=== PATIENT | male | born 2000 | race Caucasian/White ===

== ENCOUNTER 2019-08-02 19:19 | Observation (INO) | payer SELFPAY ==
[2019-08-02] MEDS ORDERED: Ondansetron 4 MG/2 ML SDV IVPUSH ONE (19:22)
[2019-08-02] MEDS ORDERED: Sodium Chloride 0.9% 1,000 ML IV ONE (19:22)
[2019-08-02] MEDS ORDERED: Thiamine 200 MG/2 ML MDV IVPUSH ONE (19:23)
--- NOTE | 2019-08-02 19:30 | EDM.PDOC ---
ED HPI GENERAL MEDICAL PROBLEM - General Chief Complaint: General Stated Complaint: INTOXICATION Time Seen by Provider: 08/02/19 19:24 Source of Information: Reports: EMS History Limitations: Reports: Intoxication - History of Present Illness INITIAL COMMENTS - FREE TEXT/NARRATIVE: Per EMS, patient has been drinking alcohol today, showed up at a friend's house , walked in then passed out on the floor. He did vomit several times. Onset: Today Social & Family History - Alcohol Use Alcohol Use History: Yes ED ROS GENERAL - Review of Systems Review Of Systems: Unable To Obtain Reason Not Obtained: Altered level of consciousness - Physical Exam Exam: See Below Exam Limited By: Intoxication General Appearance: Lethargic Eye Exam: Bilateral Eye: EOMI, PERRL Head Exam: Atraumatic, Normocephalic Neck: Full Range of Motion Respiratory/Chest: No Respiratory Distress, Lungs Clear, Normal Breath Sounds Cardiovascular: Regular Rate, Rhythm, No Murmur GI/Abdominal: Normal Bowel Sounds, Soft, Non-Tender, No Distention Neuro Exam (Abbreviated): Slow to Respond, Other (moves all 4 extremities equally, GCS=11) EKG INTERPRETATION EKG Date: 08/02/19 Time: 20:45 Rhythm: NSR Rate (Beats/Min): 74 [place]: Normal P-Wave: Present QRS: Normal ST-T: Elevated (normal early repolarization pattern) Course - Vital Signs Last Recorded V/S: Last Vital Signs Temp 35.7 C L 08/02/19 22:52 Pulse 82 08/02/19 19:50 Resp 18 08/02/19 19:50 BP 116/67 08/02/19 19:50 Pulse Ox 97 08/02/19 19:50 - Orders/Labs/Meds Orders: Active Orders 24 hr Category Date Time Status EKG Documentation Completion [RC] ASDIRECTED Care 08/02/19 19:22 Active Pool Catheter Insertion [Insert Urinary Catheter] [OM. Care 08/02/19 19:30 Ordered PC] Q24H Urinary Catheter Assessment [RC] QSHIFT Care 08/02/19 19:23 Active C-Spine [Cervical Spine wo Cont] [CT] Stat Exams 08/02/19 21:37 Taken CXR [Chest 1V Frontal] [CR] Stat Exams 08/02/19 19:21 Taken Head wo Cont [CT] Stat Exams 08/02/19 19:20 Taken LORazepam [Ativan] Med 08/02/19 19:41 Active 1 mg IVPUSH ONETIME PRN Sodium Chloride 0.9% [Normal Saline] 1,000 ml Med 08/02/19 21:15 Active IV ASDIRECTED EKG 12 Lead [EK] Stat Ther 08/02/19 19:21 Ordered Medication Orders Sodium Chloride (Normal Saline) 1,000 mls @ 250 mls/hr IV ASDIRECTED MARTHA Last Admin: 08/02/19 21:24 Dose: 250 mls/hr Lorazepam (Ativan) 1 mg IVPUSH ONETIME PRN PRN Reason: Agitation Last Admin: 08/02/19 19:52 Dose: 1 mg Labs: Laboratory Tests 08/02/19 08/02/19 08/02/19 Range/Units 19:43 19:43 19:50 WBC 13.5 H (4.5-12.0) X10-3/uL RBC 5.47 (4.30-5.75) x10(6)uL Hgb 15.8 (13.5-17.8) g/dL Hct 46.0 (30.0-51.3) % MCV 84.2 (80-96) fL MCH 28.9 (27.7-33.6) pg MCHC 34.3 (32.2-35.4) g/dL RDW 12.0 (11.5-15.5) % Plt Count 241 (125-369) X10(3)uL MPV 7.4 (7.4-10.4) fL Neut % (Auto) 82.0 (46-82) % Lymph % (Auto) 11.9 L (13-37) % [place] % (Auto) 5.8 (4-12) % Eos % (Auto) 0 L (1.0-5.0) % Baso % (Auto) 0 (0-2) % Neut # (Auto) 11.1 H (1.6-8.3) # Lymph # (Auto) 1.6 (0.6-5.0) # [place] # (Auto) 0.8 (0.0-1.3) # Eos # (Auto) 0.0 (0.0-0.8) # Baso # (Auto) 0.0 (0.0-0.2) # Sodium (135-145) mmol/L Potassium (3.5-5.3) mmol/L Chloride (100-110) mmol/L Carbon Dioxide (21-32) mmol/L BUN (7-18) mg/dL Creatinine (0.70-1.30) mg/dL Est Cr Clr Drug Dosing Estimated GFR (MDRD) (>60) BUN/Creatinine Ratio (9-20) Glucose (80-116) mg/dL Calcium (8.6-10.2) mg/dL Magnesium (1.8-2.5) mg/dL Total Bilirubin (0.1-1.3) mg/dL AST (5-25) IU/L ALT (12-36) U/L Alkaline Phosphatase (56-112) IU/L Total Protein (6.0-8.0) g/dL Albumin (3.5-5.2) g/dL Globulin g/dL Albumin/Globulin Ratio Lipase (73-393) U/L Urine Color Yellow (YELLOW) Urine Appearance Clear (CLEAR) Urine pH 6.0 (5.0-6.5) Ur Specific [place] 1.010 (1.010-1.025) Urine Protein Negative (NEGATIVE) mg/dL Urine Glucose (UA) Normal (NORMAL) mg/dL Urine Ketones 50 H (NEGATIVE) mg/dL Urine Occult Blood Negative (NEGATIVE) Urine Nitrite Negative (NEGATIVE) Urine Bilirubin Negative (NEGATIVE) Urine Urobilinogen Normal (NEGATIVE) mg/dL Ur Leukocyte Esterase Negative (NEGATIVE) Urine RBC 0-5 (0-5) Urine WBC 0-5 (0-5) Ur Squamous Epith Cells Occasional (NS,R,O) Urine Bacteria Rare H (NS) Salicylates (<2.8) mg/dL Urine Opiates Screen Negative (NEGATIVE) Ur Oxycodone Screen Negative (NEGATIVE) Ur Propoxyphene Screen Negative (NEGATIVE) Acetaminophen (<2) ug/mL Ur Barbituates Screen Negative (NEGATIVE) Ur Tricyclics Screen Negative (NEGATIVE) Ur Phencyclidine Scrn Negative (NEGATIVE) Ur Amphetamine Screen Negative (NEGATIVE) Urine MDMA Screen Negative (NEGATIVE) U Benzodiazepines Scrn Negative (NEGATIVE) U Cocaine Metab Screen Negative (NEGATIVE) U Marijuana (THC) Screen Negative (NEGATIVE) Ethyl Alcohol (<0.03) % 02/28/20 02/28/20 02/28/20 Range/Units 19:50 19:50 19:50 WBC (4.5-12.0) X10-3/uL RBC (4.30-5.75) x10(6)uL Hgb (13.5-17.8) g/dL Hct (30.0-51.3) % MCV (80-96) fL MCH (27.7-33.6) pg MCHC (32.2-35.4) g/dL RDW (11.5-15.5) % Plt Count (125-369) X10(3)uL MPV (7.4-10.4) fL Neut % (Auto) (46-82) % Lymph % (Auto) (13-37) % [place] % (Auto) (4-12) % Eos % (Auto) (1.0-5.0) % Baso % (Auto) (0-2) % Neut # (Auto) (1.6-8.3) # Lymph # (Auto) (0.6-5.0) # [place] # (Auto) (0.0-1.3) # Eos # (Auto) (0.0-0.8) # Baso # (Auto) (0.0-0.2) # Sodium 140 (135-145) mmol/L Potassium 3.3 L (3.5-5.3) mmol/L Chloride 99 L (100-110) mmol/L Carbon Dioxide 25 (21-32) mmol/L BUN 5 L (7-18) mg/dL Creatinine 0.9 (0.70-1.30) mg/dL Est Cr Clr Drug Dosing TNP Estimated GFR (MDRD) > 60 (>60) BUN/Creatinine Ratio 5.6 L (9-20) Glucose 119 H (80-116) mg/dL Calcium 8.9 (8.6-10.2) mg/dL Magnesium 2.1 (1.8-2.5) mg/dL Total Bilirubin 0.7 (0.1-1.3) mg/dL AST 35 H (5-25) IU/L ALT 32 (12-36) U/L Alkaline Phosphatase 82 (56-112) IU/L Total Protein 8.1 H (6.0-8.0) g/dL Albumin 4.6 (3.5-5.2) g/dL Globulin 3.5 g/dL Albumin/Globulin Ratio 1.3 Lipase (73-393) U/L Urine Color (YELLOW) Urine Appearance (CLEAR) Urine pH (5.0-6.5) Ur Specific [place] (1.010-1.025) Urine Protein (NEGATIVE) mg/dL Urine Glucose (UA) (NORMAL) mg/dL Urine Ketones (NEGATIVE) mg/dL Urine Occult Blood (NEGATIVE) Urine Nitrite (NEGATIVE) Urine Bilirubin (NEGATIVE) Urine Urobilinogen (NEGATIVE) mg/dL Ur Leukocyte Esterase (NEGATIVE) Urine RBC (0-5) Urine WBC (0-5) Ur Squamous Epith Cells (NS,R,O) Urine Bacteria (NS) Salicylates 3.0 (<2.8) mg/dL Urine Opiates Screen (NEGATIVE) Ur Oxycodone Screen (NEGATIVE) Ur Propoxyphene Screen (NEGATIVE) Acetaminophen < 2 L (<2) ug/mL Ur Barbituates Screen (NEGATIVE) Ur Tricyclics Screen (NEGATIVE) Ur Phencyclidine Scrn (NEGATIVE) Ur Amphetamine Screen (NEGATIVE) Urine MDMA Screen (NEGATIVE) U Benzodiazepines Scrn (NEGATIVE) U Cocaine Metab Screen (NEGATIVE) U Marijuana (THC) Screen (NEGATIVE) Ethyl Alcohol 0.25 H* (<0.03) % 08/02/19 Range/Units 19:50 WBC (4.5-12.0) X10-3/uL RBC (4.30-5.75) x10(6)uL Hgb (13.5-17.8) g/dL Hct (30.0-51.3) % MCV (80-96) fL MCH (27.7-33.6) pg MCHC (32.2-35.4) g/dL RDW (11.5-15.5) % Plt Count (125-369) X10(3)uL MPV (7.4-10.4) fL Neut % (Auto) (46-82) % Lymph % (Auto) (13-37) % [place] % (Auto) (4-12) % Eos % (Auto) (1.0-5.0) % Baso % (Auto) (0-2) % Neut # (Auto) (1.6-8.3) # Lymph # (Auto) (0.6-5.0) # [place] # (Auto) (0.0-1.3) # Eos # (Auto) (0.0-0.8) # Baso # (Auto) (0.0-0.2) # Sodium (135-145) mmol/L Potassium (3.5-5.3) mmol/L Chloride (100-110) mmol/L Carbon Dioxide (21-32) mmol/L BUN (7-18) mg/dL Creatinine (0.70-1.30) mg/dL Est Cr Clr Drug Dosing Estimated GFR (MDRD) (>60) BUN/Creatinine Ratio (9-20) Glucose (80-116) mg/dL Calcium (8.6-10.2) mg/dL Magnesium (1.8-2.5) mg/dL Total Bilirubin (0.1-1.3) mg/dL AST (5-25) IU/L ALT (12-36) U/L Alkaline Phosphatase (56-112) IU/L Total Protein (6.0-8.0) g/dL Albumin (3.5-5.2) g/dL Globulin g/dL Albumin/Globulin Ratio Lipase 50 L (73-393) U/L Urine Color (YELLOW) Urine Appearance (CLEAR) Urine pH (5.0-6.5) Ur Specific [place] (1.010-1.025) Urine Protein (NEGATIVE) mg/dL Urine Glucose (UA) (NORMAL) mg/dL Urine Ketones (NEGATIVE) mg/dL Urine Occult Blood (NEGATIVE) Urine Nitrite (NEGATIVE) Urine Bilirubin (NEGATIVE) Urine Urobilinogen (NEGATIVE) mg/dL Ur Leukocyte Esterase (NEGATIVE) Urine RBC (0-5) Urine WBC (0-5) Ur Squamous Epith Cells (NS,R,O) Urine Bacteria (NS) Salicylates (<2.8) mg/dL Urine Opiates Screen (NEGATIVE) Ur Oxycodone Screen (NEGATIVE) Ur Propoxyphene Screen (NEGATIVE) Acetaminophen (<2) ug/mL Ur Barbituates Screen (NEGATIVE) Ur Tricyclics Screen (NEGATIVE) Ur Phencyclidine Scrn (NEGATIVE) Ur Amphetamine Screen (NEGATIVE) Urine MDMA Screen (NEGATIVE) U Benzodiazepines Scrn (NEGATIVE) U Cocaine Metab Screen (NEGATIVE) U Marijuana (THC) Screen (NEGATIVE) Ethyl Alcohol (<0.03) % Meds: Medications Generic Name Dose Route Start Last Admin Trade Name Freq PRN Reason Stop Dose Admin Sodium Chloride 1,000 mls @ 250 mls/hr 08/02/19 21:15 08/02/19 21:24 Normal Saline IV 250 mls/hr ASDIRECTED MARTHA Administration Lorazepam 1 mg 08/02/19 19:41 08/02/19 19:52 Ativan IVPUSH 1 mg ONETIME PRN Administration Agitation Discontinued Medications Generic Name Dose Route Start Last Admin Trade Name Freq PRN Reason Stop Dose Admin Haloperidol Lactate Confirm 08/02/19 20:01 08/02/19 20:38 Haldol Administered 08/02/19 20:02 5 mg Dose Administration 5 mg .ROUTE .STK-MED ONE Haloperidol Lactate 5 mg 08/02/19 20:00 08/02/19 22:48 Haldol IM 08/02/19 20:01 Not Given ONETIME ONE Sodium Chloride 1,000 mls @ 999 mls/hr 08/02/19 19:22 08/02/19 19:49 Normal Saline IV 08/02/19 20:22 999 mls/hr .BOLUS ONE Administration Lorazepam 1 mg 08/02/19 20:22 08/02/19 20:26 Ativan IVPUSH 08/02/19 20:23 1 mg ONETIME ONE Administration Ondansetron HCl 4 mg 08/02/19 19:22 08/02/19 20:39 Zofran IVPUSH 08/02/19 19:23 4 mg ONETIME ONE Administration Thiamine HCl 100 mg 08/02/19 19:23 08/02/19 20:39 Vitamin B-1 IVPUSH 08/02/19 19:24 100 mg ONETIME ONE Administration - Radiology Interpretation Free Text/Narrative:: CT Head w/o contrast: No acute process. (Dr. Zion FLOYD) CT C-spine w/o contrast: No acute process. (Dr. Zion FLOYD) CXR: No acute process. (ED provider interpretation) - Re-Assessments/Exams Free Text/Narrative Re-Assessment/Exam: 08/02/19 21:[address] scan due to agitation. Agitation resolved after Ativan 2 mg IV and Haldol 5 mg IM. 08/02/19 22:41 Vital signs stable. Sa02 96% RA. Patient sleeping, not arousable, likely due to combination of Ativan, Haldol and EtOH. Will admit to [facility] ICU for observation. Departure - Departure Time of Disposition: 22:55 Disposition: Refer to Observation Condition: Fair Clinical Impression: Altered level of consciousness Alcohol intoxication Qualifiers: Complication of substance-induced condition: uncomplicated Qualified Code(s): F10.920 - Alcohol use, unspecified with intoxication, uncomplicated - Discharge Information *PRESCRIPTION DRUG MONITORING PROGRAM REVIEWED*: Yes *COPY OF PRESCRIPTION DRUG MONITORING REPORT IN PATIENT [place]: Not Applicable Referrals: PCP,None [Primary Care Provider] - Forms: ED Department Discharge Sepsis Event Note - Focused Exam Vital Signs: Vital Signs Temp Temp Pulse Resp BP Pulse Ox 08/02/19 22:52 35.7 C L 08/02/19 22:30 35 C L 08/02/19 22:28 35 C L 08/02/19 19:50 82 18 116/67 97 Date Exam was Performed: 08/02/19 Time Exam was Performed: 22:53 - My Orders Last 24 Hours: My Active Orders 08/02/19 19:20 Head wo Cont [CT] Stat 08/02/19 19:21 CXR [Chest 1V Frontal] [CR] Stat EKG 12 Lead [EK] Stat 08/02/19 19:22 EKG Documentation Completion [RC] ASDIRECTED 08/02/19 19:23 Urinary Catheter Assessment [RC] QSHIFT 08/02/19 19:30 Pool Catheter Insertion [Insert Urinary Catheter] [OM.PC] Q24H 08/02/19 19:41 LORazepam [Ativan] 1 mg IVPUSH ONETIME PRN 08/02/19 21:15 Sodium Chloride 0.9% [Normal Saline] 1,000 ml IV ASDIRECTED 08/02/19 21:37 C-Spine [Cervical Spine wo Cont] [CT] Stat - Assessment/Plan Last 24 Hours: My Active Orders 08/02/19 19:20 Head wo Cont [CT] Stat 08/02/19 19:21 CXR [Chest 1V Frontal] [CR] Stat EKG 12 Lead [EK] Stat 08/02/19 19:22 EKG Documentation Completion [RC] ASDIRECTED 08/02/19 19:23 Urinary Catheter Assessment [RC] QSHIFT 08/02/19 19:30 Pool Catheter Insertion [Insert Urinary Catheter] [OM.PC] Q24H 08/02/19 19:41 LORazepam [Ativan] 1 mg IVPUSH ONETIME PRN 08/02/19 21:15 Sodium Chloride 0.9% [Normal Saline] 1,000 ml IV ASDIRECTED 08/02/19 21:37 C-Spine [Cervical Spine wo Cont] [CT] Stat
[2019-08-02] MEDS ORDERED: LORazepam 2 MG/ML SDV IVPUSH PRN (19:41)
[2019-08-02] MEDS ORDERED: Haloperidol Lactate 5 MG/ML SDV IM ONE (20:00)
[2019-08-02] MEDS ORDERED: Haloperidol Lactate 5 MG/ML SDV ONE (20:01)
[2019-08-02 20:17] LABS: ACETAMINOPHEN < 2 ug/mL (<2)
[2019-08-02] MEDS ORDERED: LORazepam 2 MG/ML SDV IVPUSH ONE (20:22)
[2019-08-02] MEDS ORDERED: Sodium Chloride 0.9% 1,000 ML IV SCH (21:15)
[2019-08-02] MEDS ORDERED: Ondansetron 4 MG/2 ML SDV IV PRN (23:20)
--- NOTE | 2019-08-03 05:10 | PCM.HP.2 ---
H&P History of Present Illness - General Date of Service: 08/03/19 Admit Problem/Dx: Admission Diagnosis/Problem Admission Diagnosis/Problem Altered level of consciousness Source of Information: EMS Notes Reviewed, RN History Limitations: Reports: Intoxication - History of Present Illness Initial Comments - Free Text/Narative: Shiv is a 18 yo male admitted for observation after alcohol intoxication. The story is that he showed up in someone's house,passed out after vomiting several times,. Not much else is available in terms of history Social & Family History - Tobacco Use Smoking Status *Q: Unknown Ever Smoked H&P Review of Systems - Review of Systems: Review Of Systems: Comprehensive ROS is negative, except as noted in HPI. Exam - Exam Exam: See Below - Vital Signs Vital Signs: Last Vital Signs Temp 96.2 F L 08/02/19 22:52 Pulse 82 08/02/19 19:50 Resp 18 08/02/19 19:50 BP 116/67 08/02/19 19:50 Pulse Ox 98 08/03/19 01:45 - Exam General: Obtunded HEENT: PERRLA, Hearing Intact, Mucosa Moist & [place], Nares Patent, Normal Nasal Septum, Posterior Pharynx Clear, Conjunctiva Clear, EOMI, EACs Clear, TMs Clear Neck: Supple, Trachea Midline, 2 Lungs: Clear to Auscultation, Normal Respiratory Effort Cardiovascular: Regular Rate, Regular Rhythm GI/Abdominal Exam: Normal Bowel Sounds, Soft, Non-Tender, No Organomegaly, No Distention, No Abnormal Bruit, No Mass, Pelvis Stable (Male) Exam: Deferred Rectal (Males) Exam: Deferred Back Exam: Normal Inspection, Full Range of Motion, NT Extremities: Normal Inspection, Normal Range of Motion, Non-Tender, No Pedal Edema, Normal Capillary Refill Skin: Warm, Dry, Intact Neurological: Cranial Nerves Intact, Reflexes Equal Bilateral Neuro Extensive - Mental Status: Disorientation to Time, Memory Loss-Remote Events. No: Oriented x3 Neuro Extensive - Motor, Sensory, Reflexes: CN II-XII Intact, Normal Gait, Normal Reflexes Psychiatric: Alert, Normal Affect, Normal Mood - Patient Data Lab Results Last 24 hrs: Laboratory Results - last 24 hr 08/02/19 08/02/19 08/02/19 Range/Units 19:43 19:43 19:50 WBC 13.5 H (4.5-12.0) X10-3/uL RBC 5.47 (4.30-5.75) x10(6)uL Hgb 15.8 (13.5-17.8) g/dL Hct 46.0 (30.0-51.3) % MCV 84.2 (80-96) fL MCH 28.9 (27.7-33.6) pg MCHC 34.3 (32.2-35.4) g/dL RDW 12.0 (11.5-15.5) % Plt Count 241 (125-369) X10(3)uL MPV 7.4 (7.4-10.4) fL Neut % (Auto) 82.0 (46-82) % Lymph % (Auto) 11.9 L (13-37) % [place] % (Auto) 5.8 (4-12) % Eos % (Auto) 0 L (1.0-5.0) % Baso % (Auto) 0 (0-2) % Neut # (Auto) 11.1 H (1.6-8.3) # Lymph # (Auto) 1.6 (0.6-5.0) # [place] # (Auto) 0.8 (0.0-1.3) # Eos # (Auto) 0.0 (0.0-0.8) # Baso # (Auto) 0.0 (0.0-0.2) # Sodium (135-145) mmol/L Potassium (3.5-5.3) mmol/L Chloride (100-110) mmol/L Carbon Dioxide (21-32) mmol/L BUN (7-18) mg/dL Creatinine (0.70-1.30) mg/dL Est Cr Clr Drug Dosing Estimated GFR (MDRD) (>60) BUN/Creatinine Ratio (9-20) Glucose (80-116) mg/dL Calcium (8.6-10.2) mg/dL Magnesium (1.8-2.5) mg/dL Total Bilirubin (0.1-1.3) mg/dL AST (5-25) IU/L ALT (12-36) U/L Alkaline Phosphatase (56-112) IU/L Total Protein (6.0-8.0) g/dL Albumin (3.5-5.2) g/dL Globulin g/dL Albumin/Globulin Ratio Lipase (73-393) U/L Urine Color Yellow (YELLOW) Urine Appearance Clear (CLEAR) Urine pH 6.0 (5.0-6.5) Ur Specific [place] 1.010 (1.010-1.025) Urine Protein Negative (NEGATIVE) mg/dL Urine Glucose (UA) Normal (NORMAL) mg/dL Urine Ketones 50 H (NEGATIVE) mg/dL Urine Occult Blood Negative (NEGATIVE) Urine Nitrite Negative (NEGATIVE) Urine Bilirubin Negative (NEGATIVE) Urine Urobilinogen Normal (NEGATIVE) mg/dL Ur Leukocyte Esterase Negative (NEGATIVE) Urine RBC 0-5 (0-5) Urine WBC 0-5 (0-5) Ur Squamous Epith Cells Occasional (NS,R,O) Urine Bacteria Rare H (NS) Salicylates (<2.8) mg/dL Urine Opiates Screen Negative (NEGATIVE) Ur Oxycodone Screen Negative (NEGATIVE) Ur Propoxyphene Screen Negative (NEGATIVE) Acetaminophen (<2) ug/mL Ur Barbituates Screen Negative (NEGATIVE) Ur Tricyclics Screen Negative (NEGATIVE) Ur Phencyclidine Scrn Negative (NEGATIVE) Ur Amphetamine Screen Negative (NEGATIVE) Urine MDMA Screen Negative (NEGATIVE) U Benzodiazepines Scrn Negative (NEGATIVE) U Cocaine Metab Screen Negative (NEGATIVE) U Marijuana (THC) Screen Negative (NEGATIVE) Ethyl Alcohol (<0.03) % 08/02/19 08/02/19 08/02/19 Range/Units 19:50 19:50 19:50 WBC (4.5-12.0) X10-3/uL RBC (4.30-5.75) x10(6)uL Hgb (13.5-17.8) g/dL Hct (30.0-51.3) % MCV (80-96) fL MCH (27.7-33.6) pg MCHC (32.2-35.4) g/dL RDW (11.5-15.5) % Plt Count (125-369) X10(3)uL MPV (7.4-10.4) fL Neut % (Auto) (46-82) % Lymph % (Auto) (13-37) % [place] % (Auto) (4-12) % Eos % (Auto) (1.0-5.0) % Baso % (Auto) (0-2) % Neut # (Auto) (1.6-8.3) # Lymph # (Auto) (0.6-5.0) # [place] # (Auto) (0.0-1.3) # Eos # (Auto) (0.0-0.8) # Baso # (Auto) (0.0-0.2) # Sodium 140 (135-145) mmol/L Potassium 3.3 L (3.5-5.3) mmol/L Chloride 99 L (100-110) mmol/L Carbon Dioxide 25 (21-32) mmol/L BUN 5 L (7-18) mg/dL Creatinine 0.9 (0.70-1.30) mg/dL Est Cr Clr Drug Dosing TNP Estimated GFR (MDRD) > 60 (>60) BUN/Creatinine Ratio 5.6 L (9-20) Glucose 119 H (80-116) mg/dL Calcium 8.9 (8.6-10.2) mg/dL Magnesium 2.1 (1.8-2.5) mg/dL Total Bilirubin 0.7 (0.1-1.3) mg/dL AST 35 H (5-25) IU/L ALT 32 (12-36) U/L Alkaline Phosphatase 82 (56-112) IU/L Total Protein 8.1 H (6.0-8.0) g/dL Albumin 4.6 (3.5-5.2) g/dL Globulin 3.5 g/dL Albumin/Globulin Ratio 1.3 Lipase (73-393) U/L Urine Color (YELLOW) Urine Appearance (CLEAR) Urine pH (5.0-6.5) Ur Specific [place] (1.010-1.025) Urine Protein (NEGATIVE) mg/dL Urine Glucose (UA) (NORMAL) mg/dL Urine Ketones (NEGATIVE) mg/dL Urine Occult Blood (NEGATIVE) Urine Nitrite (NEGATIVE) Urine Bilirubin (NEGATIVE) Urine Urobilinogen (NEGATIVE) mg/dL Ur Leukocyte Esterase (NEGATIVE) Urine RBC (0-5) Urine WBC (0-5) Ur Squamous Epith Cells (NS,R,O) Urine Bacteria (NS) Salicylates 3.0 (<2.8) mg/dL Urine Opiates Screen (NEGATIVE) Ur Oxycodone Screen (NEGATIVE) Ur Propoxyphene Screen (NEGATIVE) Acetaminophen < 2 L (<2) ug/mL Ur Barbituates Screen (NEGATIVE) Ur Tricyclics Screen (NEGATIVE) Ur Phencyclidine Scrn (NEGATIVE) Ur Amphetamine Screen (NEGATIVE) Urine MDMA Screen (NEGATIVE) U Benzodiazepines Scrn (NEGATIVE) U Cocaine Metab Screen (NEGATIVE) U Marijuana (THC) Screen (NEGATIVE) Ethyl Alcohol 0.25 H* (<0.03) % 08/02/19 Range/Units 19:50 WBC (4.5-12.0) X10-3/uL RBC (4.30-5.75) x10(6)uL Hgb (13.5-17.8) g/dL Hct (30.0-51.3) % MCV (80-96) fL MCH (27.7-33.6) pg MCHC (32.2-35.4) g/dL RDW (11.5-15.5) % Plt Count (125-369) X10(3)uL MPV (7.4-10.4) fL Neut % (Auto) (46-82) % Lymph % (Auto) (13-37) % [place] % (Auto) (4-12) % Eos % (Auto) (1.0-5.0) % Baso % (Auto) (0-2) % Neut # (Auto) (1.6-8.3) # Lymph # (Auto) (0.6-5.0) # [place] # (Auto) (0.0-1.3) # Eos # (Auto) (0.0-0.8) # Baso # (Auto) (0.0-0.2) # Sodium (135-145) mmol/L Potassium (3.5-5.3) mmol/L Chloride (100-110) mmol/L Carbon Dioxide (21-32) mmol/L BUN (7-18) mg/dL Creatinine (0.70-1.30) mg/dL Est Cr Clr Drug Dosing Estimated GFR (MDRD) (>60) BUN/Creatinine Ratio (9-20) Glucose (80-116) mg/dL Calcium (8.6-10.2) mg/dL Magnesium (1.8-2.5) mg/dL Total Bilirubin (0.1-1.3) mg/dL AST (5-25) IU/L ALT (12-36) U/L Alkaline Phosphatase (56-112) IU/L Total Protein (6.0-8.0) g/dL Albumin (3.5-5.2) g/dL Globulin g/dL Albumin/Globulin Ratio Lipase 50 L (73-393) U/L Urine Color (YELLOW) Urine Appearance (CLEAR) Urine pH (5.0-6.5) Ur Specific [place] (1.010-1.025) Urine Protein (NEGATIVE) mg/dL Urine Glucose (UA) (NORMAL) mg/dL Urine Ketones (NEGATIVE) mg/dL Urine Occult Blood (NEGATIVE) Urine Nitrite (NEGATIVE) Urine Bilirubin (NEGATIVE) Urine Urobilinogen (NEGATIVE) mg/dL Ur Leukocyte Esterase (NEGATIVE) Urine RBC (0-5) Urine WBC (0-5) Ur Squamous Epith Cells (NS,R,O) Urine Bacteria (NS) Salicylates (<2.8) mg/dL Urine Opiates Screen (NEGATIVE) Ur Oxycodone Screen (NEGATIVE) Ur Propoxyphene Screen (NEGATIVE) Acetaminophen (<2) ug/mL Ur Barbituates Screen (NEGATIVE) Ur Tricyclics Screen (NEGATIVE) Ur Phencyclidine Scrn (NEGATIVE) Ur Amphetamine Screen (NEGATIVE) Urine MDMA Screen (NEGATIVE) U Benzodiazepines Scrn (NEGATIVE) U Cocaine Metab Screen (NEGATIVE) U Marijuana (THC) Screen (NEGATIVE) Ethyl Alcohol (<0.03) % Result Diagrams: 08/02/19 19:50 08/02/19 19:50 Sepsis Event Note - Evaluation Sepsis Screening Result: No Definite Risk - Focused Exam Vital Signs: Vital Signs Temp Temp Pulse Resp BP Pulse Ox 08/03/19 01:45 98 08/02/19 22:52 96.2 F L 08/02/19 22:30 95 F L 08/02/19 22:28 95 F L 08/02/19 19:50 82 18 116/67 97 Date Exam was Performed: 08/03/19 Time Exam was Performed: 05:07 - Problem List (1) Alcohol intoxication SNOMED Code(s): 40639741 ICD Code: F10.929 - ALCOHOL USE, UNSPECIFIED WITH INTOXICATION, UNSPECIFIED Status: Acute Current Visit: Yes Qualifiers: Complication of substance-induced condition: uncomplicated Qualified Code(s ): F10.920 - Alcohol use, unspecified with intoxication, uncomplicated Problem List Initiated/Reviewed/Updated: Yes Orders Last 24hrs: Active Orders 24 hr Category Date Time Status Admission Status [Patient Status] [ADT] Routine ADT 08/02/19 22:59 Active Cardiac Monitoring [RC] CONTINUOUS Care 08/02/19 23:21 Active Pool Catheter Insertion [Insert Urinary Catheter] [OM. Care 08/02/19 19:30 Ordered PC] Q24H Height and Weight [RC] DAILY Care 08/02/19 23:20 Active Intake and Output [RC] 06,14,22 Care 08/02/19 23:21 Active Notify Provider Vital Signs [RC] ASDIRECTED Care 08/02/19 23:21 Active Oxygen Therapy [RC] PRN Care 08/02/19 23:20 Active Pulse Oximetry [RC] CONTINUOUS Care 08/02/19 23:21 Active Urinary Catheter Assessment [RC] QSHIFT Care 08/02/19 19:23 Active VTE/DVT Education [RC] Per Unit Routine Care 08/02/19 23:20 Active Vital Signs [RC] Q4H Care 08/02/19 23:20 Active Clear Liquid Diet [DIET] Diet 08/03/19 Breakfast Active C-Spine [Cervical Spine wo Cont] [CT] Stat Exams 08/02/19 21:37 Taken CXR [Chest 1V Frontal] [CR] Stat Exams 08/02/19 19:21 Taken Head wo Cont [CT] Stat Exams 08/02/19 19:20 Taken CBC WITH AUTO DIFF [HEME] AM Lab 08/03/19 05:11 Ordered COMPREHENSIVE METABOLIC PN,CMP [CHEM] AM Lab 08/03/19 05:11 Ordered ETOH [ETHANOL BLOOD MEDICAL] [CHEM] AM Lab 08/03/19 05:11 Ordered LORazepam [Ativan] Med 08/02/19 19:41 Active 1 mg IVPUSH ONETIME PRN Ondansetron [Zofran] Med 08/02/19 23:20 Active 4 mg IV Q6H PRN Sodium Chloride 0.9% [Normal Saline] 1,000 ml Med 08/02/19 21:15 Active IV ASDIRECTED Resuscitation Status Routine Resus Stat 08/02/19 23:20 Ordered EKG 12 Lead [EK] Stat Ther 08/02/19 19:21 Ordered Medication Orders Sodium Chloride (Normal Saline) 1,000 mls @ 150 mls/hr IV ASDIRECTED MARTHA Last Admin: 08/02/19 21:24 Dose: 250 mls/hr Lorazepam (Ativan) 1 mg IVPUSH ONETIME PRN PRN Reason: Agitation Last Admin: 08/02/19 19:52 Dose: 1 mg Ondansetron HCl (Zofran) 4 mg IV Q6H PRN PRN Reason: Nausea/Vomiting Assessment/Plan Comment:: CT head and CXR reviewed-unremarkable.DC home after IV fluids and he wakes up.
--- NOTE | 2019-08-05 12:11 | CR ---
INDICATION: ALOC - uncooperative. CHEST, ONE VIEW: AP supine view of the chest revealed the heart, mediastinum, and bony thorax to be unremarkable. Overlying EKG leads are noted. A definite active infiltrate or effusion was not identified. IMPRESSION: No definite acute process. MTDD
--- NOTE | 2019-08-15 20:40 | PCM.DCSUM1 ---
Discharge Summary - Hospital Course Diagnosis: Stroke: No - Discharge Data Discharge Date: 07/30/19 Discharge Disposition: Home, Self-Care 01 Condition: Good - Referral to Home Health Primary Care Physician: PCP None - Discharge Diagnosis/Problem(s) (1) Alcohol intoxication SNOMED Code(s): 67876462 ICD Code: F10.929 - ALCOHOL USE, UNSPECIFIED WITH INTOXICATION, UNSPECIFIED Status: Acute Qualifiers: Complication of substance-induced condition: uncomplicated Qualified Code(s ): F10.920 - Alcohol use, unspecified with intoxication, uncomplicated - Discharge Plan *PRESCRIPTION DRUG MONITORING PROGRAM REVIEWED*: Yes *COPY OF PRESCRIPTION DRUG MONITORING REPORT IN PATIENT [place]: Not Applicable Patient Handouts: Alcohol Intoxication, Fall Prevention in Hospitals, Adult Forms: ED Department Discharge Referrals: PCP,None [Primary Care Provider] - - Discharge Summary/Plan Comment DC Time >30 min.: Yes - General Info Date of Service: 07/30/19 Subjective Update: Admitted over night for Alcohol intoxication.Doing well. DC home today Functional Status: Reports: Pain Controlled - Review of Systems General: Reports: No Symptoms HEENT: Reports: No Symptoms Pulmonary: Reports: No Symptoms Cardiovascular: Reports: No Symptoms Gastrointestinal: Reports: No Symptoms - Patient Data Vitals - Most Recent: Last Vital Signs Temp 97.2 F 08/03/19 07:00 Pulse 86 08/03/19 07:00 Resp 18 08/03/19 07:00 BP 99/48 L 08/03/19 07:00 Pulse Ox 97 08/03/19 07:00 Weight - Most Recent: 68.039 kg Med Orders - Current: Current Medications Discontinued Medications Haloperidol Lactate (Haldol) Confirm Administered Dose 5 mg .ROUTE .STK-MED ONE Stop: 08/02/19 20:02 Last Admin: 08/02/19 20:38 Dose: 5 mg Haloperidol Lactate (Haldol) 5 mg IM ONETIME ONE Stop: 08/02/19 20:01 Last Admin: 08/02/19 22:48 Dose: Not Given Sodium Chloride (Normal Saline) 1,000 mls @ 999 mls/hr IV .BOLUS ONE Stop: 08/02/19 20:22 Last Admin: 08/02/19 19:49 Dose: 999 mls/hr Sodium Chloride (Normal Saline) 1,000 mls @ 150 mls/hr IV ASDIRECTED MARTHA Last Admin: 08/02/19 21:24 Dose: 250 mls/hr Lorazepam (Ativan) 1 mg IVPUSH ONETIME PRN PRN Reason: Agitation Last Admin: 08/02/19 19:52 Dose: 1 mg Lorazepam (Ativan) 1 mg IVPUSH ONETIME ONE Stop: 08/02/19 20:23 Last Admin: 08/02/19 20:26 Dose: 1 mg Ondansetron HCl (Zofran) 4 mg IVPUSH ONETIME ONE Stop: 08/02/19 19:23 Last Admin: 08/02/19 20:39 Dose: 4 mg Ondansetron HCl (Zofran) 4 mg IV Q6H PRN PRN Reason: Nausea/Vomiting Thiamine HCl (Vitamin B-1) 100 mg IVPUSH ONETIME ONE Stop: 08/02/19 19:24 Last Admin: 08/02/19 20:39 Dose: 100 mg - Exam General: Reports: Alert, Oriented HEENT: Reports: Pupils Equal, Scleral Icterus Lungs: Reports: Clear to Auscultation Cardiovascular: Reports: Regular Rate Neurological: Reports: No New Focal Deficit Psy/Mental Status: Reports: Alert
== END 2019-08-03 09:08 | disposition home or self-care (01) ==
LOC: FB.ED 19:19 → FB.ICU 23:04
PROVIDERS: ADMIT Emergency Medicine; ATTEND Family Medicine
DX: F10.129 Alcohol abuse with intoxication, unspecified (principal); Y90.0 Blood alcohol level of less than 20 mg/100 ml; Z79.899 Other long term (current) drug therapy
CPT/HCPCS: 36415; 51702; 70450; 71045; 72125; 80053; 80305; 80307; 81001; 83690; 83735; 85025; 93005; 93010; 96361; 96374; 96375; 96376; 99284; 99285; G0378; J1630; J2060; J2405; J3411; J7030

== ENCOUNTER 2020-03-06 22:16 | Emergency (ER) | payer SELFPAY ==
[2020-03-06] MEDS ORDERED: Azithromycin 250 MG Tab PO ONE (23:26)
--- NOTE | 2020-03-06 23:30 | EDM.PDOC ---
ED HPI GENERAL MEDICAL PROBLEM - General Chief Complaint: General Stated Complaint: PENIS DISCHARGE Time Seen by Provider: 03/06/20 22:45 - History of Present Illness INITIAL COMMENTS - FREE TEXT/NARRATIVE: penile discharge for 3 days, getting worse , more painful , has fever on and off denies STD contact but has girlfriend Penis Pain Score (Numeric/FACES): 7 - Related Data Allergies Allergy/AdvReac Type Severity Reaction Status Date / Time No Known Allergies Allergy Verified 03/06/20 23:37 Home Meds: Home Meds NK [No Known Home Meds] 03/06/20 [History] ED ROS GENERAL - Review of Systems Review Of Systems: Comprehensive ROS is negative, except as noted in HPI. ED EXAM, GENERAL - Physical Exam Exam: See Below Exam Limited By: No Limitations General Appearance: Alert, WD/WN, No Apparent Distress Ears: Normal External Exam Nose: Normal Inspection Throat/Mouth: Normal Inspection, Normal Oropharynx Respiratory/Chest: No Respiratory Distress, Lungs Clear Cardiovascular: Normal Peripheral Pulses, Regular Rate, Rhythm GI/Abdominal: Normal Bowel Sounds, Soft, Non-Tender (Male) Exam: Urethral Discharge (thick yellow discharge noted form the os of the penis) Rectal (Males) Exam: Deferred Neurological: Alert, Oriented, CN II-XII Intact Psychiatric: Normal Affect Course - Vital Signs Last Recorded V/S: Last Vital Signs Temp 38.8 C H 03/06/20 22:30 Pulse 107 H 03/06/20 22:30 Resp 20 03/06/20 22:30 BP 127/82 03/06/20 22:30 Pulse Ox 99 03/06/20 22:30 - Orders/Labs/Meds Orders: Active Orders 24 hr Category Date Time Status CHLAMYDIA/GC AMPLIFICATION Stat Lab 03/06/20 22:50 Received [email or web address] [Rocephin] Med 03/06/20 23:45 Active 1 gm IVPUSH Q24H Medication Orders Ceftriaxone Sodium (Rocephin) 1 gm IVPUSH Q24H MARTHA Labs: Laboratory Tests 03/06/20 Range/Units 22:50 Urine Color Yellow (YELLOW) Urine Appearance Cloudy (CLEAR) Urine pH 5.0 (5.0-6.5) Ur Specific Kemp 1.020 (1.010-1.025) Urine Protein 30 H (NEGATIVE) mg/dL Urine Glucose (UA) Normal (NORMAL) mg/dL Urine Ketones 15 H (NEGATIVE) mg/dL Urine Occult Blood Moderate H (NEGATIVE) Urine Nitrite Negative (NEGATIVE) Urine Bilirubin Small H (NEGATIVE) Urine Urobilinogen 4 H (NEGATIVE) mg/dL Ur Leukocyte Esterase Large H (NEGATIVE) Urine RBC 5-10 H (0-5) Urine WBC 75-100 H (0-5) Ur Squamous Epith Cells Few H (NS,R,O) Urine Bacteria Few H (NS) Urine Mucus Moderate H (NS) Meds: Medications Generic Name Dose Route Start Last Admin Trade Name Freq PRN Reason Stop Dose Admin Ceftriaxone Sodium 1 gm 03/06/20 23:45 Rocephin IVPUSH Q24H MARTHA Discontinued Medications Generic Name Dose Route Start Last Admin Trade Name Freq PRN Reason Stop Dose Admin Azithromycin 1,000 mg 03/06/20 23:26 03/06/20 23:32 Zithromax PO 03/06/20 23:27 1,000 mg ONETIME ONE Administration Ceftriaxone Sodium 1 gm 03/06/20 23:26 03/06/20 23:35 Rocephin IM 03/06/20 23:27 Not Given ONETIME ONE Doxycycline Hyclate 200 mg 03/07/20 00:04 Vibra-Tabs PO 03/07/20 00:05 ONETIME ONE - Re-Assessments/Exams Free Text/Narrative Re-Assessment/Exam: 03/07/20 00:11 pt was not able to get an 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 Departure - Departure Time of Disposition: 12:30 Disposition: Home, Self-Care 01 Condition: Fair Clinical Impression: Abnormal penile discharge, without blood, Gonorrhea in male, Chlamydia infection - Discharge Information *PRESCRIPTION DRUG MONITORING PROGRAM REVIEWED*: Not Applicable *COPY OF PRESCRIPTION DRUG MONITORING REPORT IN PATIENT [place]: Not Applicable Instructions: Chlamydia, Male, Urethritis, Adult, Gonorrhea Referrals: PCP,None [Primary Care Provider] - Forms: ED Department Discharge Sepsis Event Note (ED) - Focused Exam Vital Signs: Vital Signs Temp Pulse Resp BP Pulse Ox 03/06/20 22:30 38.8 C H 107 H 20 127/82 99 - My Orders Last 24 Hours: My Active Orders 03/06/20 22:50 CHLAMYDIA/GC AMPLIFICATION Stat 03/06/20 23:45 [email or web address] [Rocephin] 1 gm IVPUSH Q24H - Assessment/Plan Last 24 Hours: My Active Orders 03/06/20 22:50 CHLAMYDIA/GC AMPLIFICATION Stat 03/06/20 23:45 [email or web address] [Rocephin] 1 gm IVPUSH Q24H
[2020-03-06] MEDS: cefTRIAXone 1 GM Vial IM ONE ×2 (23:32→23:35)
[2020-03-06] MEDS ORDERED: cefTRIAXone 1 GM Vial IVPUSH SCH (23:45)
[2020-03-07] MEDS ORDERED: Doxycycline 100 MG Tab PO ONE (00:04)
[2020-03-11 10:10] LABS: CHLAMYDIA TRACHOMATIS, NAA Negative (Negative); NEISSERIA GONORRHOEAE, NAA Positive (Negative)
== END 2020-03-07 00:24 | disposition home or self-care (01) ==
LOC: FB.ED 22:16
DX: A54.9 Gonococcal infection, unspecified (principal); A74.9 Chlamydial infection, unspecified
CPT/HCPCS: 81001; 87491; 87591; 99283; A9270; J0696